=== PATIENT | female | born 1955 | race Caucasian/White ===

== ENCOUNTER → 2018-01-10 | Outpatient (REF) | payer OTHER | LOC: M LABDRAW1 15:34 | DX: E10.649 Type 1 diabetes mellitus with hypoglycemia without coma (principal) ==

== ENCOUNTER → 2019-11-07 | Outpatient (CLI) | payer MEDICARE, OTHER | LOC: M WUC 08:18 | PROVIDERS: ATTEND Internal Medicine Endocrinology, Diabetes & Metabolism | DX: E10.649 Type 1 diabetes mellitus with hypoglycemia without coma (principal) ==

== ENCOUNTER → 2022-09-21 | Outpatient (REF) | payer MEDICARE, OTHER ==
[2022-09-22 18:08] LABS: PERCENT SATURATION 39.1 % (13.2-45.0)
[2022-09-22 18:11] LABS: FOLATE 11.3 NG/ML (>5.4)
== END ==
LOC: M LAB REF 16:50
PROVIDERS: ATTEND Internal Medicine
DX: D64.9 Anemia, unspecified (principal)

== ENCOUNTER → 2022-10-16 | Outpatient (CLI) | payer MEDICARE, OTHER | LOC: M WHC 11:33 | PROVIDERS: ATTEND Internal Medicine | DX: I65.23 Occlusion and stenosis of bilateral carotid arteries (principal) ==

== ENCOUNTER → 2024-12-01 | Outpatient (CLI) | payer MEDICARE, OTHER | LOC: M RAD 11:23 | PROVIDERS: ATTEND Internal Medicine | DX: I65.21 Occlusion and stenosis of right carotid artery (principal) ==

== ENCOUNTER 2024-12-25 12:34 | Emergency (ER) | payer MEDICARE, OTHER ==
[~2024-12-25] VITALS: Ht 162.6 cm; Wt 67.0 kg
[2024-12-25] MEDS ORDERED: LISI5TAB11 PO (13:05)
[2024-12-25] MEDS ORDERED: ATOR40TA75 PO (13:05)
[2024-12-25] MEDS ORDERED: ASPI81TA26 PO (13:05)
[2024-12-25] MEDS ORDERED: diltiazem (13:05)
[2024-12-25] MEDS ORDERED: HUMA100I3 SC (13:05)
[2024-12-25 13:26] LABS: BASO # 0.1 10^3/uL (0.0-0.2); BASO % 0.8 % (0.0-1.0); EOS # 0.3 10^3/uL (0.0-0.5); EOS % 3.8 % (0.0-3.0); LYMPH # 1.7 10^3/uL (1.5-5.0); LYMPH % 19.2 % (24.0-44.0); MONO # 1.0 10^3/uL (0.0-0.8); MONO % 10.9 % (2.0-8.0); NEUTROPHILS # 5.7 10^3/uL (1.5-8.5); NEUTROPHILS % 64.8 % (36.0-66.0); PLATELET COUNT, AUTOMATED 201 10^3/uL (150-450)
[2024-12-25 13:51] LABS: ALT/SGPT 16.0 U/L (7.0-40); AST/SGOT 23.0 U/L (<34); CALCIUM LEVEL 9.0 MG/DL (8.3-10.6); CARBON DIOXIDE LEVEL 26.0 MMOL/L (20-31); CHLORIDE LEVEL 107.0 MMOL/L (98-107); CREATININE FOR GFR 0.79 MG/DL (0.55-1.30); GLOMERULAR FILTRATION RATE 80.4 (>39); POTASSIUM SERUM 3.9 MMOL/L (3.5-5.1); SODIUM LEVEL 144.0 MMOL/L (136-145)
[2024-12-25 15:00] VITALS: TEMP 97.4
[2024-12-25 15:45] VITALS: BP 139/62; O2SAT 97
[2024-12-25] MEDS ORDERED: GLUC1VIA14 IM (15:54)
== END 2024-12-25 16:00 | disposition home or self-care (01) ==
LOC: M ED 12:34 → EDBD 12:34 → M ED 16:00
DX: E10.649 Type 1 diabetes mellitus with hypoglycemia without coma (principal); I25.10 Atherosclerotic heart disease of native coronary artery without angina pectoris; I10 Essential (primary) hypertension; Z98.61 Coronary angioplasty status; Z96.41 Presence of insulin pump (external) (internal); Z79.82 Long term (current) use of aspirin; Z79.4 Long term (current) use of insulin; Z79.899 Other long term (current) drug therapy

== ENCOUNTER → 2024-12-28 | Outpatient (REF) | payer MEDICARE, OTHER ==
[~2024-12-28] MED LIST: ASPI81TA26 PO; ATOR40TA75 PO; GLUC1VIA14 IM; HUMA100I3 SC; LISI5TAB11 PO; diltiazem
== END ==
LOC: M LAB REF 12:31
PROVIDERS: ATTEND Internal Medicine
DX: E10.649 Type 1 diabetes mellitus with hypoglycemia without coma (principal)